=== PATIENT | female | born 2005 | race Caucasian/White ===

== ENCOUNTER 2024-05-19 15:12 | Emergency (ER) | payer OTHER, SELFPAY ==
[2024-05-19 15:15] VITALS: BP 130/87
--- NOTE | 2024-05-19 17:06 | ED.MUSCINJ ---
HPI-Injury
General
Chief Complaint: Musculo-Skeletal Complaint
Time Seen by Provider: 05/19/24 16:38
History of Present Illness-Injury
Initial Injury comments:
18-year-old female with history of type 1 diabetes presenting to the emergency department with left ankle pain after she tripped on a sidewalk prior to arrival. Notes that she twisted her ankle and fell. Denies additional injuries from the fall.
She has since been unable to bear weight. Notes pain at the lateral aspect of the ankle. Denies numbness or tingling. Denies fever. Denies additional acute medical complaint
Phy Exam
Physical Exam
Physical Exam:
General: Well-appearing, no clinical signs of dehydration, nontoxic and in no acute distress
HEENT: protecting airway
Neck: appears supple
CV: Normal heart rate
Resp: No accessory muscle use, no increased work of breathing
Abd: no distension
Extremities: Swelling to the left ankle at the lateral malleoli with tenderness. Range of motion limited secondary to pain. Distal sensation and pulses intact. No erythema or warmth.
Neuro: alert, no focal neurologic deficit
: deferred
Rectal: deferred
Psych: Normal affect
Skin: Intact
Injury Course
Orders/Labs/Results
Orders:
Orders
05/19/24 15:17
Ankle, left 3 view CR [CR Ankle - Left Min 3 Views ] Urgent
Comment:
Reason For Exam: swelling
05/19/24 17:05
Ortho Boot Left- Treatment ONCE
Short or tall?: Short
05/19/24 17:06
Crutches-Treatment ONCE
MDM/Problems Addressed
MDM/Problems Addressed:
18-year-old female presenting to the emergency department with left ankle pain after a trip and fall. Vital signs are normal.
On exam patient is well-appearing, no acute distress or discomfort. Patient does have obvious swelling to the ankle. Otherwise no neurovascular compromise. No infectious findings. X-ray obtained, no fracture or malalignment. At this time
suspect muscular strain. Patient placed in an Bernard bandage. Will also provide a short Ortho boot. Otherwise feel patient is stable for discharge with continued outpatient supportive therapy. Return precautions discussed and patient verbalized
understanding
*Critical Care Note
Total Time (30-74mins, 75-104mins- exclusive of procedures): Not Applicable
ED Attending Note
-
Portions of this chart may have been created with voice recognition software.� Occasional wrong word or��sound alike� substitutions may have occurred due to the inherent limitations of voice recognition software.
Discharge Plan
Interventions
Interventions:
*Risk Screen - Suicide Last Done: 05/19/24 15:15
*General Assessment Last Done: 05/19/24 15:15
*Neglect/Abuse Screening Last Done: 05/19/24 15:15
*ED COVID-19 Vaccine History Last Done: 05/19/24 15:15
ED-Musculoskeletal Assessment Last Done: 05/19/24 16:38
Discharge Date and Time
Print Language: GEORGIAN
[2024-05-19 17:51] VITALS: BP 176/97
== END 2024-05-19 17:54 | disposition home or self-care (01) ==
LOC: EMR 15:12
PROVIDERS: EMERGENCY PHYSICIAN Student in an Organized Health Care Education/Training Program
DX: M25.572 Pain in left ankle and joints of left foot (principal); M25.472 Effusion, left ankle; W01.0XXA Fall on same level from slipping, tripping and stumbling without subsequent striking against object, initial encounter; X50.1XXA Overexertion from prolonged static or awkward postures, initial encounter; Y92.480 Sidewalk as the place of occurrence of the external cause; E10.9 Type 1 diabetes mellitus without complications
CPT/HCPCS: 99283; 29515; 73610